=== PATIENT | male | born 1965 | race Caucasian/White ===

== ENCOUNTER 2017-03-11 11:45 | Inpatient (IN) | payer OTHER, MEDICAID ==
[~2017-03-11] VITALS: Ht 172.7 cm; Wt 97.5 kg
[2017-03-11 11:45] VITALS: BP_SYST 152
[2017-03-11] MEDS ORDERED: NALOXONE HCL 0.4 MG/ML AMP (NARCAN) ONE (11:59)
[2017-03-11] MEDS ORDERED: NALOXONE HCL 0.4 MG/ML AMP (NARCAN) IVP ONE (12:30)
[2017-03-11 12:41] LABS: HEMATOCRIT 40.7 % (36-54); HEMOGLOBIN 13.6 g/dL (14.0-18.0); MEAN CORPUSCULAR HEMOGLOBIN 34 pg (27-31); MEAN CORPUSCULAR HGB CONC 33 % (32-36); MEAN CORPUSCULAR VOLUME 101 fL (79.0-98.0); PLATELET COUNT (AUTO) 154 K/uL (130-430); RED BLOOD CELL COUNT(AUTO) 4.02 MIL/uL (4.2-6.2); RED CELL DISTRIBUTION WIDTH 16.2 % (9.0-15.0)
[2017-03-11] MEDS ORDERED: BUPR300T46 PO (12:42)
[2017-03-11] MEDS ORDERED: QUET300T2 PO (12:42)
[2017-03-11] MEDS ORDERED: HYDR-2489 PO (12:42)
[2017-03-11] MEDS ORDERED: ASPI-1063 PO (12:42)
[2017-03-11] MEDS ORDERED: DUTA0.5C PO (12:42)
[2017-03-11] MEDS ORDERED: SIMV40TA2 PO (12:42)
[2017-03-11] MEDS ORDERED: TAMS-11 PO (12:42)
[2017-03-11 12:53] LABS: WHITE BLOOD COUNT (AUTO) 19.3 K/uL (4.8-10.8)
[2017-03-11 13:03] LABS: CHLORIDE 102 mmol/L (98-107); POTASSIUM 4.4 mmol/L (3.5-5.1); SODIUM SERUM 139 mmol/L (136-145)
[2017-03-11 13:04] LABS: ANION GAP 15 (5-15); CALCIUM 9.3 mg/dL (8.4-11.0); CREATININE 2.75 mg/dL (0.55-1.30); GFR AFRICAN AMERICAN 32 mL/min (>90); GLUCOSE 136 mg/dL (70-99); UREA NITROGEN, BLOOD 18 mg/dL (8-21)
[2017-03-11 13:05] LABS: SALICYLATE 3 mg/dL (3-30)
[2017-03-11 13:13] LABS: ALANINE AMINOTRANSFERASE 39 U/L (12-78); ALBUMIN 4.9 g/dL (3.4-4.8); ASPARTATE AMINOTRANSFERASE 93 U/L (10-37); TOTAL BILIRUBIN 0.5 mg/dL (0.0-1.0); TOTAL PROTEIN, SERUM 9.7 g/dL (6.4-8.3)
[2017-03-11 13:14] LABS: ACETAMINOPHEN < 1 ug/mL (1-30)
[2017-03-11 13:15] LABS: ATYPICAL LYMPHOCYTES % 0 % (0-0); BAND % (MANUAL) 8 % (0-6); BASOPHILS % (MANUAL) 0 % (0-2); EOSINOPHILS % (MANUAL) 0 % (0-7); LYMPHOCYTES % (MANUAL) 6 % (20-46); MONOCYTES % (MANUAL) 3 % (0-11)
[2017-03-11 13:25] LABS: ALCOHOL, BLOOD < 3 mg/dL (<10)
[2017-03-11] MEDS ORDERED: NACL 0.9% 1,000 ML IV ONE (13:45)
[2017-03-11] MEDS ORDERED: LEVOFLOXACIN 500 MG/D5W 100 ML IV SCH (15:30)
[2017-03-11 16:00] VITALS: BP_SYST 111
[2017-03-11 16:31] VITALS: BP_SYST 111
[2017-03-11] MEDS ORDERED: HYDROcodone/ACETAMIN 10-325 MG TAB PO SCH (18:30)
[2017-03-11] MEDS ORDERED: ACETAMINOPHEN 325 MG TABLET PO PRN (18:30)
[2017-03-11] MEDS ORDERED: LEVOFLOXACIN 500 MG/D5W 100 ML IV ONE (18:30)
[2017-03-11 18:42] LABS: BILIRUBIN,URINE 1+ (NEGATIVE); BLOOD, URINE 3+ (NEGATIVE); CLARITY/URINE HAZY (CLEAR); COLOR,URINE BROWN (YELLOW); GLUCOSE,URINE NEGATIVE (NEGATIVE); KETONES,URINE NEGATIVE (NEGATIVE); LEUKOCYTE ESTERASE ,URINE NEGATIVE (NEGATIVE); NITRITE, URINE NEGATIVE (NEGATIVE); PH,URINE 5.5 (5.0-8.0); PROTEIN URINE 3+ (NEGATIVE); UROBILINOGEN,URINE 0.2 (0.2-1.0)
[2017-03-11 18:57] LABS: BARBITURATE, URINE NEGATIVE (NEG <=200); BENZODIAZEPINE, URINE POSITIVE (NEG <=150); COCAINE, URINE NEGATIVE (NEG <=150); METHAMPHETAMINES SCREEN,URINE NEGATIVE (NEG <=500); URINE AMPHETAMINE NEGATIVE (NEG <=500); URINE METHADONE NEGATIVE (NEG <=200)
[2017-03-11 18:58] LABS: CANNABINOID, URINE NEGATIVE (NEG <=50); OPIATE, URINE POSITIVE (NEG <=100); PHENCYCLIDINE SCREEN,URINE NEGATIVE (NEG <=25); UR TRICYCLIC ANTIDEPRESSANTS POSITIVE (NEG <=300); URINE OXYCODONE SCREEN POSITIVE (NEG <=100); URINE PROPOXYPHENE SCREEN NEGATIVE (NEG <=300)
[2017-03-11 19:15] LABS: BACTERIA,URINE RARE /HPF (None Seen); URINE AMORPHOUS URATE 1+ /HPF (None Seen); WBC,URINE 0-3 /HPF (0-3)
[2017-03-11 19:16] LABS: FINE GRANULAR CASTS,URINE 0-10 /LPF (None Seen); HYALINE CASTS, URINE 0-10 /LPF (None Seen)
[2017-03-11 20:00] VITALS: BP_SYST 121
[2017-03-11] MEDS: SIMVASTATIN 40 MG TABLET PO SCH (20:10)
[2017-03-11] MEDS: QUEtiapine FUMARATE 100 MG TABLET PO SCH (20:12)
[2017-03-11] MEDS: NACL 0.9% 1,000 ML IV SCH (20:13)
[2017-03-11] MEDS: HYDROcodone/ACETAMIN 10-325 MG TAB PO PRN (20:14)
[2017-03-12] VITALS (9 sets, daily range): BP systolic 104–137
[2017-03-12] MEDS ORDERED: LORazepam 1 MG TABLET ONE (02:32)
[2017-03-12] MEDS ORDERED: LORazepam 1 MG TABLET PO ONE (03:00)
[2017-03-12] MEDS: HYDROcodone/ACETAMIN 10-325 MG TAB PO PRN ×3 (03:48→18:27)
[2017-03-12] MEDS: NACL 0.9% 1,000 ML IV SCH ×2 (05:52→14:28)
[2017-03-12 06:47] LABS: ALBUMIN 3.4 g/dL (3.4-4.8); CALCIUM 7.9 mg/dL (8.4-11.0); CREATININE 1.23 mg/dL (0.55-1.30); POTASSIUM 3.6 mmol/L (3.5-5.1); TOTAL BILIRUBIN 0.4 mg/dL (0.0-1.0); TOTAL PROTEIN, SERUM 7.3 g/dL (6.4-8.3)
[2017-03-12 06:52] LABS: BASOPHILS # (AUTO) 0.1 K/uL (0.0-0.2); BASOPHILS % (AUTO) 0.7 % (0.0-2.0); EOSINOPHILS # (AUTO) 0.1 K/uL (0.0-0.4); EOSINOPHILS % (AUTO) 1.1 % (0.0-4.0); HEMATOCRIT 31.3 % (36-54); HEMOGLOBIN 11.1 g/dL (14.0-18.0); LYMPHOCYTES # (AUTO) 1.3 K/uL (1.0-5.5); LYMPHOCYTES % (AUTO) 13.9 % (20.5-51.5); MEAN CORPUSCULAR HEMOGLOBIN 36 pg (27-31); MEAN CORPUSCULAR HGB CONC 35 % (32-36); MEAN CORPUSCULAR VOLUME 102 fL (79.0-98.0); MONOCYTES # (AUTO) 0.7 K/uL (0.0-1.0); MONOCYTES % (AUTO) 7.9 % (1.7-9.3); NEUTROPHILS # (AUTO) 6.9 K/uL (1.8-7.7); NEUTROPHILS % (AUTO) 76.4 % (40.0-70.0); PLATELET COUNT (AUTO) 149 K/uL (130-430); RED BLOOD CELL COUNT(AUTO) 3.08 MIL/uL (4.2-6.2); RED CELL DISTRIBUTION WIDTH 16.8 % (9.0-15.0); WHITE BLOOD COUNT (AUTO) 9.1 K/uL (4.8-10.8)
[2017-03-12] MEDS: LEVOFLOXACIN 250 MG/D5W 50 ML IV SCH (08:39)
[2017-03-12] MEDS: ASPIRIN 81 MG TABLET(ECOTRIN) PO SCH (08:40)
[2017-03-12] MEDS: FAMOTIDINE 20 MG TABLET PO SCH (08:40)
[2017-03-12] MEDS: DUTASTERIDE 0.5 MG CAPSULE (AVODART) PO SCH (08:40)
[2017-03-12] MEDS: TAMSULOSIN HCL 0.4 MG CAP PO SCH (08:40)
[2017-03-12] MEDS: QUEtiapine FUMARATE 100 MG TABLET PO SCH ×2 (08:40→20:26)
[2017-03-12] MEDS: ALBUTEROL SULFATE 0.083% 2.5 MG/3 ML VIAL.NEB INH SCH ×4 (10:15→23:39)
[2017-03-12] MEDS ORDERED: MORPHINE SULFATE 15 MG TABLET.SA PO ONE ×2 (10:45)
[2017-03-12] MEDS ORDERED: clonazePAM 0.5 MG TABLET PO ONE (10:45)
[2017-03-12] MEDS ORDERED: PANTOPRAZOLE SODIUM 40 MG TAB PO ONE (15:00)
[2017-03-12] MEDS ORDERED: clonazePAM 0.5 MG TABLET PO SCH (15:00)
[2017-03-12] MEDS: clonazePAM 0.5 MG TABLET PO SCH ×2 (15:56→20:26)
[2017-03-12] MEDS: SIMVASTATIN 40 MG TABLET PO SCH (20:26)
[2017-03-12] MEDS: MORPHINE SULFATE 15 MG TABLET.SA PO SCH (20:27)
[2017-03-13] MEDS: NACL 0.9% 1,000 ML IV SCH ×3 (00:58→22:04)
[2017-03-13] MEDS: HYDROcodone/ACETAMIN 10-325 MG TAB PO PRN ×4 (01:06→20:24)
[2017-03-13 04:13] VITALS: BP_SYST 100
[2017-03-13] MEDS: ALBUTEROL SULFATE 0.083% 2.5 MG/3 ML VIAL.NEB INH SCH ×3 (07:00→15:00)
[2017-03-13 07:25] LABS: CALCIUM 7.9 mg/dL (8.4-11.0); CREATININE 0.9 mg/dL (0.55-1.30); POTASSIUM 3.8 mmol/L (3.5-5.1)
[2017-03-13 07:50] VITALS: BP_SYST 112
[2017-03-13] MEDS: LEVOFLOXACIN 250 MG/D5W 50 ML IV SCH (09:02)
[2017-03-13] MEDS: DUTASTERIDE 0.5 MG CAPSULE (AVODART) PO SCH (09:02)
[2017-03-13] MEDS: QUEtiapine FUMARATE 100 MG TABLET PO SCH ×2 (09:03→20:55)
[2017-03-13] MEDS: MORPHINE SULFATE 15 MG TABLET.SA PO SCH ×2 (09:03→20:55)
[2017-03-13] MEDS: TAMSULOSIN HCL 0.4 MG CAP PO SCH (09:03)
[2017-03-13] MEDS: ASPIRIN 81 MG TABLET(ECOTRIN) PO SCH (09:03)
[2017-03-13] MEDS: PANTOPRAZOLE SODIUM 40 MG TAB PO SCH (09:03)
[2017-03-13] MEDS: FAMOTIDINE 20 MG TABLET PO SCH (09:03)
[2017-03-13] MEDS: clonazePAM 0.5 MG TABLET PO SCH ×3 (09:03→20:55)
[2017-03-13 11:52] VITALS: BP_SYST 104
[2017-03-13 16:00] VITALS: BP_SYST 122
[2017-03-13 19:30] VITALS: BP_SYST 130
[2017-03-13] MEDS: SIMVASTATIN 40 MG TABLET PO SCH (20:55)
[2017-03-14] MEDS: HYDROcodone/ACETAMIN 10-325 MG TAB PO PRN (03:25)
[2017-03-14 03:57] VITALS: BP_SYST 136
[2017-03-14] MEDS: ALBUTEROL SULFATE 0.083% 2.5 MG/3 ML VIAL.NEB INH SCH ×3 (07:49→15:00)
[2017-03-14] MEDS: TAMSULOSIN HCL 0.4 MG CAP PO SCH (08:33)
[2017-03-14] MEDS: PANTOPRAZOLE SODIUM 40 MG TAB PO SCH (08:33)
[2017-03-14] MEDS: QUEtiapine FUMARATE 100 MG TABLET PO SCH (08:33)
[2017-03-14] MEDS: MORPHINE SULFATE 15 MG TABLET.SA PO SCH (08:33)
[2017-03-14] MEDS: DUTASTERIDE 0.5 MG CAPSULE (AVODART) PO SCH (08:33)
[2017-03-14] MEDS: ASPIRIN 81 MG TABLET(ECOTRIN) PO SCH (08:33)
[2017-03-14] MEDS: FAMOTIDINE 20 MG TABLET PO SCH (08:33)
[2017-03-14] MEDS: clonazePAM 0.5 MG TABLET PO SCH ×2 (08:33→15:04)
[2017-03-14 08:38] VITALS: BP_SYST 141
[2017-03-14] MEDS: NACL 0.9% 1,000 ML IV SCH (09:37)
[2017-03-14] MEDS: LEVOFLOXACIN 250 MG/D5W 50 ML IV SCH (09:37)
[2017-03-14 12:37] VITALS: BP_SYST 126
[2017-03-14 16:53] VITALS: BP_SYST 149
[2017-03-14 17:04] VITALS: BP_SYST 149
== END 2017-03-14 18:55 | disposition home or self-care (01) | DRG 871 ==
LOC: SED 11:45 → STU 13:49
PROVIDERS: ADMIT Internal Medicine; ATTEND Internal Medicine
DX: A41.9 Sepsis, unspecified organism (principal); G92 Toxic encephalopathy; N17.9 Acute kidney failure, unspecified; N39.0 Urinary tract infection, site not specified; J44.1 Chronic obstructive pulmonary disease with (acute) exacerbation; T40.601A Poisoning by unspecified narcotics, accidental (unintentional), initial encounter; N13.9 Obstructive and reflux uropathy, unspecified; M54.9 Dorsalgia, unspecified; F17.200 Nicotine dependence, unspecified, uncomplicated; F31.9 Bipolar disorder, unspecified; E66.01 Morbid (severe) obesity due to excess calories; Z60.2 Problems related to living alone; F11.90 Opioid use, unspecified, uncomplicated; G89.29 Other chronic pain; Z68.32 Body mass index [BMI] 32.0-32.9, adult; N40.1 Benign prostatic hyperplasia with lower urinary tract symptoms; R33.8 Other retention of urine
CPT/HCPCS: 36415; 70450-TC; 71010; 74000-TC; 76700-TC; 76770; 80048; 80053; 80307; 81000-TC; 83605; 85007; 85025; 85027; 87040-TC; 93005; 94640; 94760; 96374; 97116-GP; 97530-GP; 99291; G0480; G0481; G0482; J1956; J2310; J7030